=== PATIENT | female | born 1985 | race Caucasian/White ===

== ENCOUNTER 2023-11-24 10:02 | Emergency (ER) | payer BC ==
[~2023-11-24] VITALS: Ht 160 cm; Wt 99.8 kg
[2023-11-24 10:05] VITALS: BP 141/77; TEMP 98.4; O2SAT 100
[2023-11-24] MEDS ORDERED: KETOROLAC TROMETHAMINE INJ 30 MG/ML VIAL ONE (11:21)
[2023-11-24] MEDS ORDERED: CYCLOBENZAPRINE 10 MG TABLET ONE (11:22)
[2023-11-24] MEDS ORDERED: CYCL5TAB PO (11:26)
[2023-11-24] MEDS ORDERED: KETOROLAC TROMETHAMINE INJ 30 MG/ML VIAL IM ONE (11:30)
[2023-11-24] MEDS ORDERED: CYCLOBENZAPRINE 10 MG TABLET PO ONE (11:30)
== END 2023-11-24 12:09 | disposition home or self-care (01) ==
LOC: ER 10:09
DX: M54.6 Pain in thoracic spine (principal)
CPT/HCPCS: 99283; 96372; J1885